=== PATIENT | male | born 1995 | race Caucasian/White ===

== ENCOUNTER → 2021-04-10 13:30 | Outpatient (BNVA) | payer OTHER, SELFPAY | PROVIDERS: Family Provider Nurse Practitioner Family; PCP Registered Nurse; Visit Provider Nurse Practitioner Family | DX: Z20.822 Contact with and (suspected) exposure to COVID-19 (principal) | CPT/HCPCS: 87426; 87635 ==

== ENCOUNTER 2021-06-06 07:49 | Emergency (ER) | payer OTHER, SELFPAY ==
--- NOTE | 2021-06-06 07:54 | W.ED.GENADLT ---
HPI - General Adult General: Chief complaint: GI Bleed Stated complaint: HEMORRHOID BURST YESTERDAY, PAIN/BLEEDING TODAY Time Seen by Provider: 06/06/21 07:54 History of Present Illness: HPI narrative: 85-year-old male presents emergency room complaining of a hemorrhoid that broke yesterday some bleeding and increased pain Onset (ago): day(s) Severity: mild Quality: sharp Pain Consistency: constant Relieving factors: none Exacerbating factors: none Associated symptoms: Deny chest pain, confusion, cough, diaphoresis, decreased appetite, dyspnea, fevers/chills, headache(s), malaise, nausea, rash, palpitations, seizures, short of breath, syncope, vomiting or weakness Treatments prior to arrival: none Review of Systems Const: Denies: malaise or diaphoresis ENMT: Denies: throat pain, ear or mastoid pain, nasal discharge or nasal congestion Card: Denies: chest pain, palpitations or syncope Resp: Denies: dyspnea GI: Denies: nausea or vomiting : Denies: flank pain, dysuria, urinary frequency or urinary urgency Skin/Breast: Denies: rash Neuro: Denies: headache(s) or confusion PFSH ED PFSH: Medical History Intermittent explosive Major depressive disorder, recurrent, moderate Psychiatric care Family History Mother Diabetes Hypertension Grandfather Diabetes CHF (congestive heart failure) Grandmother Diabetes Heart disease Social History Smoking and tobacco status: never smoked Alcohol intake: never Adopted: No Caregiver/support person: No Lives independently: No Household members: family service: No Current occupational status: employed Sexually active: Yes Current gender identity: Male Physical Exam Const: COMMON NORMALS: no acute distress GENERAL APPEARANCE: cooperative and comfortable ORIENTATION/CONSCIOUSNESS: Yes awake, Yes oriented to person, Yes oriented to place and Yes oriented to time HENMT: COMMON NORMALS: normocephalic, atraumatic and hearing grossly normal bilaterally HEAD & SCALP: normocephalic and atraumatic Neck/C-Spine: COMMON NORMALS: no JVD Resp: COMMON NORMALS: normal respiratory effort, No retractions, No use of accessory muscles and clear to auscultation bilaterally AUSCULTATION: clear to auscultation bilaterally Cardio: COMMON NORMALS: no JVD, regular rate, regular rhythm and No murmurs present (Cardio) RATE: regular rate RHYTHM: regular rhythm GI: COMMON NORMALS: Soft to palpation and No hepatosplenomegaly present AUSCULTATION: Yes normoactive bowel sounds PALPATION: Yes Soft to palpation, No Tenderness to palpation present (GI), No Guarding due to palpation present (GI) and Yes No hepatosplenomegaly present Extremity: COMMON NORMALS: normal to inspection, capillary refill normal, no clubbing, cyanosis or edema, no calf tenderness and no pedal edema Neuro: SENSORIUM/ORIENTATION: Yes oriented to person, Yes oriented to place and Yes oriented to time Skin: COMMON NORMALS: no rashes or lesions noted GENERAL SKIN EXAM: no rashes or lesions noted Course Vital Signs: Vital signs: Vital Signs Temperature 97.6 F 06/06/21 07:59 Pulse Rate 56 L 06/06/21 07:59 Respiratory Rate 16 06/06/21 07:59 Blood Pressure 148/87 06/06/21 07:59 Pulse Oximetry 99 06/06/21 07:59 Discharge Plan Discharge Patient Disposition: Home Clinical Impression: External hemorrhoid, thrombosed Condition: Stable Prescriptions: New hydrocortisone [Anusol-HC] 2.5 % cream with perineal applicator 1 applic TX QID 21 Days Qty: 30 RF: 2 No Action Zyrtec 10 mg capsule 10 mg PO DAILY PRNRF: 0 sertraline [Zoloft] 25 mg tablet 25 mg PO DAILY Qty: 90 RF: 0 sertraline 50 mg tablet 50 mg PO DAILY Qty: 90 RF: 1 cephalexin 500 mg capsule 500 mg PO Q8H 7 Days Qty: 21 RF: 0 benzonatate [Tessalon Perles] 100 mg capsule 100 mg PO TID PRN (Reason: cough) Qty: 30 RF: 0 Discharge Orders: Discharge ED (Routine); Ordered 06/06/21 Ordered By: Matthew Carbajal Referrals: Linnette Bhatti, PRESS OPERATOR APPRENTICE [Primary Care Provider] - Patient Instructions: Opioid Safety, Hydrocortisone (Into the rectum) (Anusol-HC, Procto-Jesus,..., Hemorrhoids (ED) Activity Restrictions/Additional Instructions: Follow-up with your primary care doctor within the next 7 to 10 days. If needed they can refer you to general surgery Coding Level of Care Code ED Security Guard Dispatcher for Chg Fwd Exam Comprehensive
[2021-06-06 07:59] VITALS: BP 148/87; PULSE 56; RESP 16; TEMP 36.4; O2SAT 99; BMI 30.9
[2021-06-06 08:13] VITALS: RESP 15
[2021-06-06 08:20] VITALS: BP 148/87; PULSE 56; RESP 15; O2SAT 99
== END 2021-06-06 08:19 | disposition home or self-care (01) ==
PROVIDERS: Emergency Provider Family Medicine; PCP Registered Nurse
DX: K64.5 Perianal venous thrombosis (principal)
CPT/HCPCS: 99283

== ENCOUNTER 2021-08-13 10:46 | Outpatient (CLI) | payer OTHER, SELFPAY ==
--- NOTE | 2021-08-13 11:03 | XR_ITS ---
WS: [id number] Exam: XR chest 2V* [id number] Date/Time of Exam: 08/13/2021 11:38 AM Reason For Exam: R05.3 - Chronic cough Findings: The lungs are clear and fully expanded. Costophrenic angles are sharp. No infiltrates. Bronchovascula r relief appears normal. Cardiac silhouette is unremarkable. Bony elements are intact. XR/XR chest 2V* [id number] IMPRESSION: Unremarkable chest radiograph.
== END 2021-08-13 10:47 | disposition home or self-care (01) ==
LOC: RAD 10:53
PROVIDERS: PCP Registered Nurse; Visit Provider Nurse Practitioner Family
DX: R05.3 Chronic cough (principal)
CPT/HCPCS: 71046

== ENCOUNTER 2021-09-30 06:51 | Emergency (ER) | payer OTHER, SELFPAY ==
[2021-09-30 06:58] VITALS: BP 136/78; PULSE 69; RESP 18; TEMP 36.1; O2SAT 98; BMI 29.6
--- NOTE | 2021-09-30 07:06 | ED_ITS ---
HPI - General Adult General: Chief complaint: General Medical Stated complaint: shortness of breath / coughing Time Seen by Provider: 09/30/21 06:55 Source: patient Mode of arrival: ambulatory Limitations: no limitations History of Present Illness: 26-year-old male presents emergency room complaining of cough for the last 5 months cough is been nonproductive he has had evaluation by his primary care. Chest x-ray that was reported to him as normal. Cough has increased in the last 24 hours. He has an appointment with Dr. Martinez for evaluation for his chronic cough he had previously been started on a PPI. He denies any hematemesis coffee-ground emesis no fever sweats or chills. He has vomited a couple times but has not had any increase in vomiting. No chest pain. No abdominal pain at this time Onset (ago): month(s) (5) Location: abdomen (Epigastric) Relieving factors: none Associated symptoms: Reports cough; Deny chest pain, confusion, diaphoresis, decreased appetite, dyspnea, fevers/chills, headache(s), malaise, nausea, rash, palpitations, seizures, short of breath, syncope, vomiting or weakness Treatments prior to arrival: none Review of Systems Const: Denies: malaise or diaphoresis ENMT: Denies: throat pain, ear or mastoid pain, nasal discharge or nasal congestion Card: Denies: chest pain, palpitations, irregular heart rhythm, edema, swelling of feet/ankles or syncope Resp: Reports: non-productive cough; Denies: dyspnea GI: Reports: abdominal pain (Epigastric); Denies: nausea or vomiting : Denies: flank pain, dysuria, urinary frequency or urinary urgency Skin/Breast: Denies: rash Neuro: Denies: headache(s) or confusion PFS ED PFSH: Medical History Intermittent explosive Major depressive disorder, recurrent, moderate Surgical History History of tonsillectomy and adenoidectomy Family History Mother Diabetes Hypertension Grandfather Diabetes CHF (congestive heart failure) Grandmother Diabetes Heart disease Social History Smoking and tobacco status: never smoked Alcohol intake: never Adopted: No Caregiver/support person: No Lives independently: No Household members: family service: No Current occupational status: employed Sexually active: Yes Current gender identity: Male Physical Exam Const: GENERAL APPEARANCE: cooperative and comfortable ORIENTATION/CONSCIOUSNESS: Yes awake, Yes oriented to person, Yes oriented to place and Yes oriented to time HENMT: COMMON NORMALS: normocephalic, atraumatic and hearing grossly normal bilaterally HEAD & SCALP: normocephalic and atraumatic Neck/C-Spine: COMMON NORMALS: no JVD Resp: COMMON NORMALS: normal respiratory effort, No retractions, No use of accessory muscles and clear to auscultation bilaterally AUSCULTATION: clear to auscultation bilaterally Cardio: COMMON NORMALS: no JVD, regular rate, regular rhythm and No murmurs present (Cardio) RATE: regular rate RHYTHM: regular rhythm GI: COMMON NORMALS: Soft to palpation and No hepatosplenomegaly present AUSCULTATION: Yes normoactive bowel sounds PALPATION: Yes Soft to palpation, No Tenderness to palpation present (GI), No Guarding due to palpation present (GI) and Yes No hepatosplenomegaly present Extremity: COMMON NORMALS: normal to inspection, capillary refill normal, no clubbing, cyanosis or edema, no calf tenderness and no pedal edema Neuro: SENSORIUM/ORIENTATION: Yes oriented to person, Yes oriented to place and Yes oriented to time Skin: COMMON NORMALS: no rashes or lesions noted GENERAL SKIN EXAM: no rashes or lesions noted Course 2 Vital Signs: Vital signs: Vital Signs Temperature 96.9 F L 09/30/21 06:58 Pulse Rate 83 09/30/21 08:07 Respiratory Rate 16 09/30/21 08:07 Blood Pressure 151/72 09/30/21 08:07 Pulse Oximetry 96 09/30/21 08:07 [facility] - General Adult Medical Decision Making Patient has no significant cough while here. He does have a pretty impressive eosinophilia. Suspect this is asthmatic in nature and he will need to pulmonary function test chest x-ray was unremarkable for now and recommend that he start on Singulair 10 mg daily albuterol to use as needed set up for pulmonary function test referral to pulmonology. Discussed with the patient he may need further medications to manage this but before initiating those he should have a pulmonary function test. Medical Records I reviewed the patient's medical records. Lab Data I reviewed the patient's lab results. : 09/30/21 07:29 09/30/21 07:29 Radiology Impressions Chest X-Ray 09/30/21: IMPRESSION: No acute findings. Laboratory Results WBC 13.2 10^3/uL (4.0-10.0) H 09/30/21 07: RBC 5.01 10^6/uL (4.1-5.3) 09/30/21 07: Hgb 15.6 g/dL (11.7-16.6) 09/30/21: Hct 46.0 % (42.0-52.0) 09/30/21 07: MCV 91.8 fl (80-94) 09/30/21 07: MCH 31.1 pg (28.0-34.0) 09/30/21: MCHC 33.9 g/dL (30.0-36.0) 09/30/21 07: RDW 12.5 % (12.1-15.1) 09/30/21: Plt Count 266 10^3/cmm (130-400) 09/30/21: MPV 9.8 fL (7.4-10.4) 09/30/21 07: Neut % (Auto) 51.1 % 09/30/21 07: Lymph % (Auto) 17.0 % 09/30/21: [place] % (Auto) 4.6 % 09/30/21 07: Eos % (Auto) 26.0 % 09/30/21: Baso % (Auto) 1.1 % 09/30/21: Neut # (Auto) 6.76 10^3/uL (1.8-7.7) 09/30/21: Lymph # (Auto) 2.3 10^3/uL (0.8-4.8) 09/30/21 07: Stan[place] # (Auto) 0.6 10^3/uL (0.2-0.9) 09/30/21: Eos # (Auto) 3.4 10^3/uL (0.0-0.8) H 09/30/21 07:29 Baso # (Auto) 0.2 10^3/uL (0.0-0.1) H 09/30/21 07:29 Nucleated RBC % (auto) 0 % 09/30/21 07:29 Nucleated RBCs # 0.0 /100WBC 09/30/21 07:29 Sodium 139 mmol/L (136-145) 09/30/21 07:29 Chloride 105 mmol/L (98-107) 09/30/21 07:29 Carbon Dioxide 23 mmol/L (22-29) 09/30/21 07:29 BUN 20 mg/dL (6-20) 09/30/21 07:29 Creatinine 0.9 mg/dL (0.7-1.2) 09/30/21 07:29 GFR Calculation 103.7 mL/min (90-130) 09/30/21 07:29 Glucose 106 mg/dL (65-115) 09/30/21 07:29 Calculated Osmolality 291 mOsm/kg (285-295) 09/30/21 07:29 Calcium 9.7 mg/dL (8.5-10.5) 09/30/21 07:29 Discharge Plan Discharge Patient Disposition: Home Clinical Impression: Chronic cough, Eosinophilia Condition: Stable Prescriptions: New albuterol sulfate 90 mcg/actuation HFA aerosol inhaler 2 inh INHALATION Q4H PRN (Reason: shortness of breath or wheezing) Qty: 18 0RF Singulair 10 mg tablet 10 mg PO DAILY Qty: 30 0RF No Action hydrocortisone 2.5 % cream with applicator topical 0RF polyethylene glycol 3350 [Miralax] 17 gram/dose powder See Rx Instructions PO DAILY 30 Days Qty: 119 0RF Rx Instructions: 1 capful PO daily; benzonatate 200 mg capsule 200 mg PO TID Qty: 30 0RF esomeprazole magnesium [Nexium] 20 mg capsule,delayed release(DR/EC) 20 mg PO DAILY Qty: 30 0RF Zyrtec 10 mg capsule 10 mg PO DAILY PRN (Reason: allergies) Qty: 90 0RF sertraline 50 mg tablet See Rx Instructions .ROUTE .COMPLEX Qty: 90 0RF Dose Instruction: Take 1 tablet by mouth once daily Rx Instructions: Take 1 tablet by mouth once daily sertraline 25 mg tablet See Rx Instructions .ROUTE .COMPLEX Qty: 90 0RF Dose Instruction: Take 1 tablet by mouth once daily Rx Instructions: Take 1 tablet by mouth once daily Discharge Orders: Discharge ED (Routine); Ordered 09/30/21 Ordered By: Matthew Carbajal Referrals: Linnette Bhatti FNP [Nurse Practitioner] - Discharge Diet: Usual diet Discharge Activity: Increase activity as tolerated Patient Instructions: Opioid Safety Activity Restrictions/Additional Instructions: Case management make arrangements for you to have pulmonary function test and referral to pulmonology. Start the Singulair daily and use albuterol as needed. You will likely need further inhaled medications pending the results of your pulmonary function tests Stand Alone Forms: Work/School Release Coding Level of Care Code ED Learning Specialist for Chantal Fwd Exam Comprehensive
--- NOTE | 2021-09-30 07:07 | ECG_ITS ---
[facility] Test Date: 2021-09-30 Pat Name: Patrick Jimenez Department: Room: Gender: Male Quality Assurance Practice Manager: : 1995 Requested By: Matthew Colon Order Number: [id number] Epi MD: Melody Koch M.D. Measurements Intervals [place] Rate: 74 P: 35 LA: 177 QRS: 81 QRSD: 101 T: 9 QT: 376 QTc: 417 Interpretive Statements SINUS RHYTHM WITH SINUS ARRHYTHMIA No previous ECG available for comparison Electronically Signed On 09-30-2021 22:50:58 CDT by Melody Koch M.D. [id number]
--- NOTE | 2021-09-30 07:07 | XRR_ITS ---
PROCEDURE INFORMATION: Exam: XR Chest Exam date and time: 09/30/2021 7:15 AM Age: 26 years old Clinical indication: Cough; Patient HX: Couging since apr 2021; Additional info: Dyspnea/cough TECHNIQUE: Imaging protocol: XR of the chest. Views: 1 view. COMPARISON: CR XR chest 2V* [id number] 08/13/2021 11:36 AM FINDINGS: Lungs: Unremarkable. No consolidation. Pleural spaces: Unremarkable. No pleural effusion. No pneumothorax. Heart/Mediastinum: Unremarkable. No cardiomegaly. Bones/joints: Unremarkable. XR/XR chest 1V portable [id number] IMPRESSION: No acute findings.
[2021-09-30 07:19] VITALS: BP 151/72; PULSE 77; RESP 16; O2SAT 98
[2021-09-30 07:37] LABS: Basophils # 0.2 10^3/uL (0.0-0.1); Basophils % 1.1 %; Eosinophils # 3.4 10^3/uL (0.0-0.8); Hemoglobin 15.6 g/dL (11.7-16.6); Lymphocytes # 2.3 10^3/uL (0.8-4.8); Mean Corpuscular HGB Conc 33.9 g/dL (30.0-36.0); Mean Corpuscular Hemoglobin 31.1 pg (28.0-34.0); Mean Corpuscular Volume 91.8 fl (80-94); Mean Platelet Volume 9.8 fL (7.4-10.4); Monocytes # 0.6 10^3/uL (0.2-0.9); Monocytes % 4.6 %; Neutrophils # 6.76 10^3/uL (1.8-7.7); Neutrophils % 51.1 %; Nucleated Red Blood Cells % 0 %; Platelet Count 266 10^3/cmm (130-400); Red Blood Count 5.01 10^6/uL (4.1-5.3); Red Cell Distribution Width 12.5 % (12.1-15.1); White Blood Count 13.2 10^3/uL (4.0-10.0)
[2021-09-30 07:58] LABS: Blood Urea Nitrogen 20 mg/dL (6-20); Calcium 9.7 mg/dL (8.5-10.5); Carbon Dioxide 23 mmol/L (22-29); Chloride 105 mmol/L (98-107); Glomerular Filtration Rate 103.7 mL/min (90-130); Glucose 106 mg/dL (65-115); Osmolality Calculated 291 mOsm/kg (285-295); Sodium 139 mmol/L (136-145)
[2021-09-30 08:07] VITALS: BP 151/72; PULSE 83; RESP 16; O2SAT 96
[2021-09-30 09:00] LABS: Anion Gap 15.6 (5-19); Potassium 4.6 mmol/L (3.5-5.1)
--- NOTE | 2021-09-30 14:58 | DCPLANNER ---
Addendum entered by Mignon Barrios 10/24/21 21:53: Patient had an appointment scheduled with pulmonology - patient did attend appointment. patient had a PFT scheduled - patient did not attend appointment. Addendum entered by Mignon Barrios 10/01/21 12:50: Patient has a follow up appointment scheduled for Thursday, October 14, 2021 at 11:[address] Shaver at Pulmonology. business applications manager called patient, unable to speak with patient. business applications manager spoke with patients mother, gave her the appointment information. Original Note: business applications manager had message to schedule a follow up appointment for patient with heart care and an outpatient PFT test. business applications manager sent patients information to the front staff at [facility] for review. Patients information will be printed and reviewed. Clinic will notify leather case finisher of the scheduled appointment. business applications manager will call patient with appointment information with [facility]. business applications manager will fax signed order for the PFT to centralized scheduling, who will call patient with appointment information.
== END 2021-09-30 08:10 | disposition home or self-care (01) ==
PROVIDERS: Emergency Provider Family Medicine
DX: R05.3 Chronic cough (principal); D72.10 Eosinophilia, unspecified; R10.13 Epigastric pain
CPT/HCPCS: 71045; 80048; 85025; 93005; 99283